=== PATIENT | male | born 1950 | race African-American/Black ===

== ENCOUNTER → 2016-11-19 | Outpatient (CLI) | payer MEDICARE, BC ==
--- NOTE | ~2016-11-19 | NM8 ---
[facility] A Service of [facility] & [facility] RADIOLOGY TEXT RESULTS PATIENT: CONCEPCION TATUM LOCATION: [facility] : 46 UNIT #: [id number] AGE: [address]: Eddie Aleman MD SEX: M ORDER DR: [id number] [facility] [address] [place] [facility]. [place], [place] [address] [id number] O MR#: [id number] Acc #: [id number] NAME: CONCEPCION TATUM : 1950 SEX: M STUDY DATE/TIME: 11/19/2016 11:13 UNIT: [facility] ROOM: STUDY DESCRIPTION: MD Bone or Joint Whole Body Attending Physician: Eddie Aleman M.D. Referring Physician: Eddie Aleman M.D. Ordering Physician: Eddie Aleman M.D. Primary Care Physician: Maricarmen Tavarez M.D. MEDICAL IMAGING REPORT This report is preliminary unless electronic signature is present EXAM Whole-body bone scan HISTORY 66-year-old male complains of multifocal arthritis. Pain for 4-5 years, worse in the left hip 3 beginning 3 weeks ago. COMPARISON Standing knee films 11/14/2016 TECHNIQUE Whole-body and selected spot images were performed of the axial and appendicular skeleton following intravenous administration of 30.7 mCi technetium-99m MDP. FINDINGS Examination demonstrates increased uptake within both knees, left greater than right, predominantly involving the medial compartment of the left knee; findings compatible with moderately advanced osteoarthritis of the left knee and early osteoarthritis medial compartment right knee. This corresponds to the plain film findings. There is also increased uptake within the right hip, consistent with underlying osteoarthritis. This is visualized on the patient's pelvic films from 11/02/2015. Uptake within the remainder of the axial and appendicular skeleton unremarkable. Bilateral renal activity and normal bladder activity noted. I suspect there is a small amount of uptake within the lower lumbar spine to the left of midline, best seen on the posterior acquisitions and felt to correspond to facet arthropathy, as noted on the patient's MRI of 11/06/2015. IMPRESSION Abnormal increased uptake within the right hip, both knees and lower lumbar spine. Findings within the hip and knees consistent with STS. [facility] A Service of [facility] & [facility] RADIOLOGY TEXT RESULTS PATIENT: CONCEPCION TATUM LOCATION: [facility] : 46 UNIT #: [id number] AGE: [address]: Eddie Aleman MD SEX: M ORDER DR: underlying osteoarthritis and correlates with the plain film findings with moderately advanced arthritic changes in the left knee. The uptake in the lower lumbar spine on the left is felt to be related underlying lower lumbar spine facet disease. Dictated by... Jacob Eric M.D. THIS IS AN ELECTRONICALLY VERIFIED REPORT Jacob Eric M.D. at 11/24/2016 1:20 PM Natalie TD: 11/19/2016 15:45 JOB #: [id number] MEDICAL IMAGING REPORT Page 1 of 1 COPY
== END | disposition home or self-care (01) ==
LOC: CNUC 07:18
DX: M19.90 Unspecified osteoarthritis, unspecified site (principal); R94.8 Abnormal results of function studies of other organs and systems
CPT/HCPCS: 78306; A9503